=== PATIENT | female | born 1960 | race Caucasian/White ===

== ENCOUNTER → 2018-04-15 | Outpatient (CLI) | payer OTHER ==
[~2018-04-15] MED LIST: CALC500T42 PO; ERG400 PO; LEVO88TA42 PO
--- NOTE | 2018-04-16 13:16 | RADIOLOGY IMAGING REPORT ---
FACILITY: [facility] - [place] PATIENT NAME: DANIEL MACKEY : [id number] MR: [id number] V: [id number] EXAM DATE: [id number] ORDERING PHYSICIAN: NELLY GARNER TECHNOLOGIST: Aileen Gong PROCEDURE:BILATERAL DIGITAL SCREENING MAMMOGRAM WITH CAD ASSISTED INTERPRETATION & 3D TOMOSYNTHESIS COMPARISON:12/28/2016 & priors back to 06/07/2012 INDICATIONS:SCREENING FINDINGS: Breast parenchyma is mostly fatty replaced. There are no mammographic findings concerning for malignancy. There is no significant interval change. DIAGNOSTIC CATEGORY 1--NEGATIVE. RECOMMENDATIONS: ROUTINE MAMMOGRAM AND CLINICAL EVALUATION. IMPRESSION: BIRADS 1: Negative. Dictated by: Chris Noe on 04/16/2018 at 11:00 Transcribed by: GELACIO on 04/16/2018 at 12:50 Approved by: Chris Noe on 04/16/2018 at 13:15 [facility]
== END ==
LOC: MAMO 03-19 00:45
PROVIDERS: ATTEND Obstetrics & Gynecology
DX: Z12.31 Encounter for screening mammogram for malignant neoplasm of breast (principal)
CPT/HCPCS: 77063; 77067

== ENCOUNTER → 2018-04-16 | Outpatient (CLI) | payer OTHER ==
--- NOTE | 2018-04-16 11:43 | EKG ---
FACILITY: [facility] - [place] PATIENT NAME: DANIEL MACKEY : [id number] MR: [id number] V: [id number] EXAM DATE: ORDERING PHYSICIAN: NELLY GARNER TECHNOLOGIST: ALTHEA Test Reason : HIGH BLOOD PRESSURE Blood Pressure : / mmHG Vent. Rate : 068 BPM Atrial Rate : 068 BPM P-R Int : 146 ms QRS Dur : 086 ms QT Int : 412 ms P-R-T Axes : 056 026 056 degrees QTc Int : 438 ms Normal sinus rhythm Normal ECG No previous ECGs available Confirmed by COMPA LINK ([id number]) on 04/16/2018 1:00:34 PM Referred By: PATSY Confirmed By:COMPA LINK
== END ==
LOC: RESP 07:06
PROVIDERS: ATTEND Obstetrics & Gynecology
DX: I10 Essential (primary) hypertension (principal)
CPT/HCPCS: 93005

== ENCOUNTER → 2019-05-27 | Outpatient (CLI) | payer OTHER | LOC: AUD 11:03 | PROVIDERS: ATTEND Nurse Practitioner Family | DX: H91.91 Unspecified hearing loss, right ear (principal) | CPT/HCPCS: 92557; 92570 ==